=== PATIENT | male | born 1975 | race Caucasian/White ===

== ENCOUNTER → 2020-09-11 13:08 | Outpatient (CLI) | payer OTHER, SELFPAY ==
[2020-09-11] MEDS: COVID-19 VACC #1, MRNA(MOD) 100 MCG/0.5 ML VIAL IM (13:17)
== END ==
PROVIDERS: Visit Provider Internal Medicine
DX: Z23 Encounter for immunization (principal)
CPT/HCPCS: 0011A; 91301

== ENCOUNTER → 2020-10-09 13:06 | Outpatient (CLI) | payer OTHER, SELFPAY ==
[2020-10-09] MEDS: COVID-19 VACC #2, MRNA(MOD) 100 MCG/0.5 ML VIAL IM (13:11)
== END ==
PROVIDERS: Visit Provider Internal Medicine
DX: Z23 Encounter for immunization (principal)
CPT/HCPCS: 0012A; 91301

== ENCOUNTER 2024-02-19 04:09 | Emergency (ER) | payer MEDICAID, OTHER, SELFPAY ==
[2024-02-19] VITALS (10 sets, daily range): BP systolic 138–159; BP diastolic 80–89; PULSE 69–99; RESP 8–18; TEMP 36.8; O2SAT 97–100; BMI 30.4
--- NOTE | 2024-02-19 04:24 | DI.RAD.S_ITS ---
PROCEDURE: XR CHEST 1V INDICATIONS: chest pain TECHNIQUE: One view of the chest was acquired. COMPARISON: [facility], CT, CT ABDOMEN PELVIS W CON, 02/19/2024, 5:12. FINDINGS: Surgical changes and devices: None. Lungs and pleura: Lungs are clear. No pleural effusions or pneumothorax. Mediastinum: Mediastinal contours appear normal. Heart size is normal. Bones and chest wall: No suspicious bony lesions. Overlying soft tissues appear unremarkable. IMPRESSION: Normal portable chest. Note: No significant discrepancy from the preliminary report. Dictated by: Lei Mao M.D. on 02/19/2024 at 6:29 Approved by: Lei Mao M.D. on 02/19/2024 at 6:29
--- NOTE | 2024-02-19 04:30 | ED_ITS ---
HPI - Abdominal Pain General Chief Complaint: Chest Pain Stated Complaint: ABD pain, SOB, Vomitting Time Seen by Provider: 02/19/24 04:10 Source: patient Mode of arrival: Ambulatory History of Present Illness HPI narrative: 49-year-old male with reported history of low testosterone presents by private vehicle from home for severe abdominal pain, shortness of breath, nausea, episode of vomiting. States it pain was so severe it made him start sweating. Pain in his abdomen is worse in his left side and goes to his back. Not relieved with [id number] antacids. Related Data Previous Rx's Medication Instructions Recorded dicyclomine 20 mg tablet 20 mg PO TID PRN abdominal pain 02/19/24 #30 tabs omeprazole 40 mg capsule,delayed 40 mg PO DAILY #30 caps 02/19/24 release ondansetron 4 mg disintegrating 4 mg PO Q8H PRN nausea and 02/19/24 tablet vomiting #30 tabs sucralfate 1 gram tablet 1 g PO QACHS #60 tabs 02/19/24 Allergies Allergy/AdvReac Type Severity Reaction Status Date / Time lactose Allergy Unknown Verified 02/19/24 04:38 shellfish derived Allergy Unknown Verified 02/19/24 04:38 Patient History Social History Smoking Status: Never smoker Smoking Status: Never smoker alcohol intake frequency: a few times a week Substance Use Type: does not use Exam Initial Vital Signs Initial Vital Signs: Vital Signs Pulse Rate 73 02/19/24 04:24 Const: Awake, alert, uncomfortable, nontoxic appearing Cardiac: regular rate, regular rhythm RESP: unlabored, clear bilaterally, no wheezing GI: Soft, generalized tenderness to deep palpation without rebound or guarding Skin: Warm, Dry, intact, no rashes Neuro: AO x3, CN II-XII grossly intact, moves all extremities Course Orders Ordered: Discontinued Medications Aspirin (Aspirin 81 Mg Chew Tab) 324 mg PO NOW ONE Stop: 02/19/24 04:25 Last Admin: 02/19/24 05:32 Dose: Not Given Documented By: Acetaminophen (Ofirmev) 1,000 mg in 100 mls @ 400 mls/hr IV NOW ONE Stop: 02/19/24 04:41 Last Infusion: 02/19/24 05:32 Dose: Infused Documented By: Admin: 02/19/24 04:52 Dose: 400 mls/hr Documented By: Sodium Chloride (Normal Saline 0.9%) 1,000 mls @ 1,000 mls/hr IV BOLUS ONE Stop: 02/19/24 05:26 Last Infusion: 02/19/24 05:53 Dose: Infused Documented By: Admin: 02/19/24 04:52 Dose: 1,000 mls/hr Documented By: Morphine Sulfate (Morphine 4 Mg/Ml Inj) 4 mg IV NOW ONE Stop: 02/19/24 04:47 Last Admin: 02/19/24 04:52 Dose: 4 mg Documented By: Ondansetron HCl (Ondansetron 4 Mg/2 Ml Inj) 4 mg IV NOW ONE Stop: 02/19/24 04:28 Last Admin: 02/19/24 04:52 Dose: 4 mg Documented By: Vital Signs Vital signs: Vital Signs - 8 hr 02/19/24 04:25 Temperature 98.3 F Pulse Rate 72 Respiratory Rate 18 Blood Pressure 145/82 H Pulse Oximetry 99 Oxygen Delivery Method Room Air MDM - Abdominal Pain Differential Diagnosis Differential diagnosis: Likely abdominal pain, gastroenteritis and small bowel obstruction Lab Data 02/19/24 04:30 02/19/24 04:30 Labs: Lab Results 02/19/24 Range/Units 04:30 WBC 12.8 H (4.5-11.0) X10^3/uL RBC 5.32 (4.5-5.9) X10^6/uL Hgb 16.1 (13.5-17.5) g/dL Hct 47.2 (41-53) % MCV 88.8 (80-100) fL MCH 30.3 (26-34) PG MCHC 34.2 (30-36) % RDW 13.3 (11.6-14.8) % Plt Count 240 (150-400) X10^3/uL Neut % (Auto) 79.8 H (50-75) % Lymph % (Auto) 13.2 L (25-40) % Sawyer % (Auto) 4.0 (3-14) % Eos % (Auto) 1.6 L (2-4) % Baso % (Auto) 1.4 (0-2) % Neut # (Auto) 61104 H (1600-7099) /uL Lymph # (Auto) 1700 (0072-3115) /uL Sawyer # (Auto) 500 (0-900) /uL Eos # (Auto) 200 (0-450) /uL Baso # (Auto) 200 H (0-100) /uL PT 11.2 (9.4-12.5) SECONDS INR 1.0 (0.9-1.3) APTT 34 (25.1-36.5) SECONDS Sodium 137 (137-145) mmol/L Potassium 4.3 (3.4-5.1) mmol/L Chloride 101 (98-107) mmol/L Carbon Dioxide 26 (22-32) mmol/L BUN 8 L (9-20) mg/dL Creatinine 0.91 (0.66-1.25) mg/dL Estimated GFR > 60 (>60) mL/min BUN/Creatinine Ratio 8.8 (6-22) Glucose 131 H (70-100) mg/dL Calcium 10.3 H (8.4-10.2) mg/dL Magnesium 1.7 (1.6-2.3) mg/dL Total Bilirubin 0.5 (0.2-1.3) mg/dL AST 28 (17-59) IU/L ALT 50 H (<50) IU/L Alkaline Phosphatase 40 (38-126) U/L Total Creatine Kinase 84 (55-170) U/L Troponin I < 0.012 (0.01-0.034) ng/mL NT-Pro-B Natriuret Pep 46 (<125) pg/mL Total Protein 7.8 (6.3-8.2) g/dL Albumin 4.8 (3.5-5.0) g/dL Globulin 3.0 (1.7-4.1) g/dL Albumin/Globulin Ratio 1.6 (1.0-2.8) Lipase 83 (23-300) U/L Imaging Data CT scan - abdomen/pelvis: Radiologist's Impression: PROCEDURE: CT ABDOMEN PELVIS W CON INDICATIONS: RUQ/MIDEPIGASTRIC PAIN TO BACK, N/V TECHNIQUE: After the administration of intravenous contrast, axial sections acquired from the lung bases to the pubic symphysis. Coronal and sagittal reformats were performed. For radiation dose reduction, the following was used: automated exposure control, adjustment of mA and/or kV according to patient size. COMPARISON: [facility], CR, XR CHEST 1V, 02/19/2024, 5:21. FINDINGS: Image quality: Diagnostic. Lower Chest: No significant findings. ABDOMEN: Liver: No solid mass. Gallbladder: No radiopaque gallstones or wall thickening. No pericholecystic fluid can be seen. No inflammatory change. Biliary ducts: No biliary dilation. Pancreas: No ductal dilation. Spleen: Size is within normal limits. Adrenal Glands: No adrenal nodules. Kidneys and Ureters: No hydronephrosis. No solid mass. No complex renal cystic lesion which requires follow up. Stomach and Bowel: Normal colonic caliber, without significant wall thickening. There is a moderate volume of stool seen within the proximal colon. No dilated loops of small bowel are seen. No appendix (either normal or abnormal) is identified on this study. No focal right lower quadrant inflammatory change is seen. The stomach is decompressed at the time of this study, limiting its evaluation. Peritoneum: No abnormal intraperitoneal fluid. No free air. Ventral Wall: No significant ventral hernia. Abdominal Nodes: No retroperitoneal or mesenteric adenopathy by size criteria. Vessels: Aorta and inferior vena cava are normal in size. PELVIS: Pelvic Organs: Unremarkable. Bladder: No bladder wall thickening, accounting for underdistention. Pelvic Nodes: No enlarged lymph nodes. Miscellaneous: There is a mild fat containing left inguinal hernia. Bones: No aggressive osseous abnormality. Focal L5-S1 degenerative change is seen. Milder degenerative changes are seen elsewhere. IMPRESSION: No significant acute abnormality is seen. No significant abnormality of the gallbladder can be seen by CT. No biliary dilatation. Additional findings: Focal L5-S1 degenerative change Mild fat containing left inguinal hernia Note: No significant discrepancy from the preliminary report. Dictated by: Lei Mao M.D. on 02/19/2024 at 6:26 Approved by: Lei Mao M.D. on 02/19/2024 at 6:29 ECG Data Interpretation: Normal sinus rhythm at 69 beats per minute, normal VA, no ST T wave changes, no STEMI MDM Narrative Medical decision making narrative: Abdominal pain with shortness of breath, nausea, vomiting. Patient reports diaphoresis at home due to pain, Skin is warm and dry on my evaluation. Abdomen soft, generally tender to palpation without rebound or guarding. Pain and nausea medications ordered. Laboratory work reviewed, mild leukocytosis with WBC count 12.8, likely reactionary from vomiting. Hemoglobin 16.1, platelet count 240, sodium 137, potassium 4.3, creatinine 0.91, troponin undetectable, lipase 83. CT of the abdomen and pelvis reviewed, no acute abnormalities to explain the reported severity of patient's symptoms. Patient resting comfortably in bed, he was subsequently been able to tolerate p.o. and has had no further episodes of emesis. Patient informed of lab and imaging findings. Patient frustrated to find out that there was no explanation for symptoms based on labs and imaging. Recommended symptomatic control medications of antacids, Carafate, antispasmodics, and nausea medications. These were sent to the patient's pharmacy of choice. Patient encouraged to return for repeat evaluation if his symptoms recur or worsen. Discharge Plan Departure Patient Disposition: Home Clinical Impression: Abdominal pain, Nausea & vomiting Instructions: DI for Abdominal Pain-Adult Activity Restrictions/Additional Instructions: Your laboratory work and CT imaging today did not show any abnormalities to explain your abdominal pain. There was no sign of infection, inflammation, blockage, masses, or organ dysfunction. A combination of medications has been sent to the [facility] in [place], this may help to control your abdominal pain. Carafate as a protective medication for the stomach, omeprazole is an antacid, and Bentyl is an antispasmodic medication. Zofran can also be taken for nausea as needed. Over the next several days follow a light diet, this may help to decrease abdominal pain episodes in the future. A referral number has been provided to General surgery. If you continue to experience abdominal pains they are an option to discuss possible endoscopy for further investigation of abdominal pains. Prescriptions: New omeprazole 40 mg capsule,delayed release(DR/EC) 40 mg PO DAILY Qty: 30 0RF sucralfate 1 gram tablet 1 g PO QACHS Qty: 60 0RF ondansetron 4 mg tablet,disintegrating 4 mg PO Q8H PRN (Reason: nausea and vomiting) Qty: 30 0RF dicyclomine 20 mg tablet 20 mg PO TID PRN (Reason: abdominal pain) Qty: 30 0RF Referrals: Devi Saravia MD [Physician] - Stand Alone Forms: Patient Portal/API
--- NOTE | 2024-02-19 04:36 | EKG_ITS ---
[address] [address] Test Date: 2024-02-19 Pat Name: Filiberto Chapman Department: [facility] Room: Gender: Male Demographer: : 1975 Requested By: Order Number: [id number] Reading MD: Jonas Bae Measurements Intervals [place] Rate: 69 P: 56 WY: 152 QRS: 75 QRSD: 78 T: 45 QT: 370 QTc: 396 Interpretive Statements Normal sinus rhythm with sinus arrhythmia Electronically Signed On 02-20-2024 15:24:30 PDT by Jonas Bae
[2024-02-19 04:43] LABS: Add Manual Diff / Slide Review NO; Basophils Absolute Auto 200 /uL (0-100); Basophils Percent Auto 1.4 % (0-2); Eosinophils Absolute Auto 200 /uL (0-450); Eosinophils Percent Auto 1.6 % (2-4); Hematocrit 47.2 % (41-53); Hemoglobin 16.1 g/dL (13.5-17.5); Lymphocytes Absolute Auto 1700 /uL (1100-4500); Lymphocytes Percent Auto 13.2 % (25-40); Mean Corpuscular HGB Conc 34.2 % (30-36); Mean Corpuscular Hemoglobin 30.3 PG (26-34); Mean Corpuscular Volume 88.8 fL (80-100); Monocytes Absolute Auto 500 /uL (0-900); Neutrophils Absolute Auto 10200 /uL (1500-7000); Neutrophils Percent Auto 79.8 % (50-75); Platelet Count 240 X10^3/uL (150-400); Red Blood Cell Count 5.32 X10^6/uL (4.5-5.9); Red Cell Distribution Width 13.3 % (11.6-14.8); White Blood Cell Count 12.8 X10^3/uL (4.5-11.0)
[2024-02-19] MEDS: ONDANSETRON 4 MG/2 ML INJ IV (04:52)
[2024-02-19] MEDS: SODIUM CHLORIDE 0.9% 1,000 ML 1000 ML IV (04:52)
[2024-02-19] MEDS: ACETAMINOPHEN IV 1,000 MG/100 ML VIAL 400 MG IV (04:52)
[2024-02-19] MEDS: MORPHINE 4 MG/ML INJ IV (04:52)
[2024-02-19 04:58] LABS: Prothrombin Time 11.2 SECONDS (9.4-12.5)
[2024-02-19 05:01] LABS: PTT Partial Thromboplastin Tim 34 SECONDS (25.1-36.5)
[2024-02-19 05:03] LABS: Alanine Aminotransferase 50 IU/L (<50); Albumin 4.8 g/dL (3.5-5.0); Albumin Globulin Ratio 1.6 (1.0-2.8); Alkaline Phosphatase 40 U/L (38-126); Aspartate Aminotransferase 28 IU/L (17-59); BUN Creatinine Ratio 8.8 (6-22); Bilirubin Total 0.5 mg/dL (0.2-1.3); Blood Urea Nitrogen 8 mg/dL (9-20); Calcium 10.3 mg/dL (8.4-10.2); Carbon Dioxide 26 mmol/L (22-32); Chloride 101 mmol/L (98-107); Creatine Kinase 84 U/L (55-170); Estimated Glomerular Filt Rate > 60 mL/min (>60); Glucose 131 mg/dL (70-100); HEMOLYSIS < 15 (0-50); Lipase 83 U/L (23-300); Magnesium 1.7 mg/dL (1.6-2.3); Potassium 4.3 mmol/L (3.4-5.1); Sodium 137 mmol/L (137-145); Total Protein 7.8 g/dL (6.3-8.2)
[2024-02-19 05:14] LABS: NT-proBNP (BNP-Adult 18+) 46 pg/mL (<125); Troponin I < 0.012 ng/mL (0.01-0.034)
== END 2024-02-19 07:08 | disposition home or self-care (01) ==
PROVIDERS: Emergency Provider Emergency Medicine
DX: R10.9 Unspecified abdominal pain (principal); R11.2 Nausea with vomiting, unspecified
CPT/HCPCS: 36415; 71045; 74177; 80053; 82550; 83690; 83735; 83880; 84484; 85025; 85610; 85730; 93005; 96365; 96375; 99284; J0136; J2270; J2405; Q9967

== ENCOUNTER → 2024-03-14 07:12 | Outpatient (CLI) | payer OTHER, MEDICAID, SELFPAY ==
--- NOTE | 2024-03-14 07:14 | DI.US.S_ITS ---
PROCEDURE: US ABDOMEN LIMITED INDICATIONS: FOLLOW UP ER VISIT ABDOMINAL PAIN. RECENT CT. TECHNIQUE: Real-time focused scanning was performed of the abdomen, with image documentation. COMPARISON: None. FINDINGS: Liver measures 14 cm. Possible 0.6 cm hyperechoic lesion in the left lobe measuring 5-6 mm. Cholelithiasis. The gallbladder is packed with stones. No sonographic Pitt sign. Mild gallbladder wall thickening at 5-6 mm. There is mild pericholecystic fluid. Nondilated biliary system, although not well seen. Partially visualized pancreas unremarkable. IMPRESSION: Cholelithiasis, gallbladder is packed with stones. No sonographic Pitt sign. However, there is mild wall thickening pericholecystic fluid. If there is high concern for cholecystitis, consider nuclear medicine HIDA study. 0.6 cm indeterminate hyperechoic lesion in the left lobe of the liver, usually hemangioma. Liver MRI could confirm, particularly if the patient has a primary history of or concern for malignancy. Dictated by: Adolfo Townsend M.D. on 03/14/2024 at 9:18 Approved by: Adolfo Townsend M.D. on 03/14/2024 at 9:20
== END ==
PROVIDERS: PCP Family Medicine; Referring Provider Family Medicine; Visit Provider Family Medicine
DX: K80.20 Calculus of gallbladder without cholecystitis without obstruction (principal); K76.9 Liver disease, unspecified; Z87.19 Personal history of other diseases of the digestive system
CPT/HCPCS: 76705